=== PATIENT | female | born 1970 | race Caucasian/White ===

== ENCOUNTER 2020-10-01 21:04 | Emergency (ER) | payer BC ==
[~2020-10-01] VITALS: Ht 160 cm; Wt 129.1 kg
[2020-10-01 21:18] LABS: COLLECTION METHOD CLEAN CATCH
[2020-10-01 21:33] LABS: MUCOUS Present /lpf; PH 6 (5-8); URINE APPEARANCE Cloudy; URINE BACTERIA Rare /hpf; URINE BILIRUBIN Negative (NEGATIVE); URINE BLOOD Negative (NEGATIVE); URINE COLOR Yellow; URINE GLUCOSE Negative (NEGATIVE); URINE KETONE Negative (NEGATIVE); URINE LEUKOCYTE ESTERASE 2+ (NEGATIVE); URINE NITRATE Negative (NEGATIVE); URINE PROTEIN(semi-quant) Negative (NEGATIVE); URINE UROBILINOGEN >=4.0 mg/dL (NEGATIVE); URINE WBC >50 /hpf
[2020-10-01] MEDS ORDERED: CEFTIN 250250 MG/TAB PO (22:05)
[2020-10-01 22:26] VITALS: BP 132/76; PULSE 78; TEMP 98
== END 2020-10-01 22:29 | disposition home or self-care (01) ==
LOC: COL.ER
PROVIDERS: Emergency Medicine
DX: N39.0 Urinary tract infection, site not specified (principal)

== ENCOUNTER 2020-11-12 11:01 | Emergency (ER) | payer BC ==
[~2020-11-12 11:01] MED LIST: CEFTIN 250250 MG/TAB PO
== END 2020-11-12 12:11 | disposition left against medical advice (07) ==
LOC: COL.ER 11:01
DX: R69 Illness, unspecified (principal)

== ENCOUNTER 2020-12-19 21:40 | Emergency (ER) | payer BC ==
[~2020-12-19] VITALS: Ht 160 cm; Wt 127.3 kg
[2020-12-19 21:46] VITALS: TEMP 98
[2020-12-19] MEDS ORDERED: GLUCOPHAGE500 MG/TAB PO (22:08)
[2020-12-19] MEDS ORDERED: RISPERDAL M-TAB2 MG PO (22:08)
[2020-12-19] MEDS ORDERED: HYZAAR 50-12.1 UDTAB PO (22:09)
[2020-12-19] MEDS ORDERED: METHOTREXA2.5 MG/TAB PO (22:09)
[2020-12-19] MEDS ORDERED: BUSPIRONE HCL7.5 MG PO (22:10)
[2020-12-19] MEDS ORDERED: LEXAPRO20 MG PO (22:10)
[2020-12-19 22:14] VITALS: BP 136/82; PULSE 90
== END 2020-12-19 22:16 | disposition home or self-care (01) ==
LOC: COL.ER 21:40
DX: E11.9 Type 2 diabetes mellitus without complications (principal); E66.01 Morbid (severe) obesity due to excess calories; F17.210 Nicotine dependence, cigarettes, uncomplicated; Z79.84 Long term (current) use of oral hypoglycemic drugs

== ENCOUNTER → 2021-01-18 | Outpatient (CLI) | payer BC ==
[~2021-01-18] MED LIST changes: +ALDACTONE50 MG PO; +BUSPIRONE HCL7.5 MG PO; +COLACE 100100 MG/CAP PO; +ELIQUIS 5MG PO; +FLAGYL500 MG PO; +FOLIC ACID 11 MG/TA1 PO; +GLUCOPHAGE500 MG/TAB PO; +HYZAAR 50-12.1 UDTAB PO; +IRON TABLETS325 MG PO; +LASIX 20MG TABL20 MG PO; +LEXAPRO20 MG PO; +METHOTREXA2.5 MG/TAB PO; +MIRALAX PA17 GM/Dose PO; +NICODERM C14 MG/PATC TD; +OMNICEF 300MG300 MG PO; +OZEMPIC0.25 MG/0. SQ; +PAMELOR 25MG25 MG PO; +PHENERGAN 25 TA25 MG PO; +PROTONIX 40MG T40 MG PO; +RISPERDAL 0.5M0.5 MG PO; +RISPERDAL M-TAB2 MG PO; +VESICARE10 MG PO; +ZOFRAN ODT8 MG PO
== END ==
LOC: COL.RAD 09:48
DX: R10.13 Epigastric pain (principal); R14.2 Eructation; R11.2 Nausea with vomiting, unspecified; R13.10 Dysphagia, unspecified

== ENCOUNTER → 2021-02-04 | Outpatient (CLI) | payer BC | LOC: COL.RAD 09:41 | DX: K92.0 Hematemesis (principal); R14.2 Eructation; R10.13 Epigastric pain; R13.10 Dysphagia, unspecified | CPT/HCPCS: A9537; J2805 ==

== ENCOUNTER → 2021-02-23 | Outpatient (CLI) | payer BC | LOC: COL.RAD 02-22 07:00 | DX: R11.2 Nausea with vomiting, unspecified (principal) | CPT/HCPCS: A9541 ==

== ENCOUNTER 2021-02-27 10:32 | Emergency (ER) | payer BC ==
[~2021-02-27] VITALS: Ht 160 cm; Wt 122.7 kg
[~2021-02-27 10:32] MED LIST changes: -ALDACTONE50 MG PO; -COLACE 100100 MG/CAP PO; -ELIQUIS 5MG PO; -FLAGYL500 MG PO; -FOLIC ACID 11 MG/TA1 PO; -IRON TABLETS325 MG PO; -LASIX 20MG TABL20 MG PO; -MIRALAX PA17 GM/Dose PO; -NICODERM C14 MG/PATC TD; -OMNICEF 300MG300 MG PO; -OZEMPIC0.25 MG/0. SQ; -PAMELOR 25MG25 MG PO; -PHENERGAN 25 TA25 MG PO; -PROTONIX 40MG T40 MG PO; -RISPERDAL 0.5M0.5 MG PO; -VESICARE10 MG PO; -ZOFRAN ODT8 MG PO
[2021-02-27 10:38] VITALS: TEMP 98.3
[2021-02-27 10:48] LABS: COLLECTION METHOD CLEAN CATCH
[2021-02-27 11:01] LABS: URINE APPEARANCE Hazy; URINE COLOR Yellow
[2021-02-27] MEDS ORDERED: OMNICEF 300MG300 MG PO (11:01)
[2021-02-27 11:02] LABS: PH 5 (5-8); URINE BILIRUBIN Positive (NEGATIVE); URINE GLUCOSE Negative (NEGATIVE); URINE KETONE Negative (NEGATIVE); URINE LEUKOCYTE ESTERASE 1+ (NEGATIVE); URINE NITRATE Negative (NEGATIVE); URINE PROTEIN(semi-quant) 2+ (NEGATIVE)
[2021-02-27 11:04] LABS: URINE BLOOD Negative (NEGATIVE)
[2021-02-27 11:11] VITALS: BP 104/63; PULSE 104
[2021-02-27 11:19] LABS: URINE BACTERIA Moderate /hpf
== END 2021-02-27 11:12 | disposition home or self-care (01) ==
LOC: COL.ER 10:32
PROVIDERS: Family Medicine
DX: E11.9 Type 2 diabetes mellitus without complications (principal); N39.0 Urinary tract infection, site not specified; I10 Essential (primary) hypertension; F32.A Depression, unspecified; F41.9 Anxiety disorder, unspecified; Z79.84 Long term (current) use of oral hypoglycemic drugs; Z79.899 Other long term (current) drug therapy
CPT/HCPCS: J0696

== ENCOUNTER → 2021-03-15 | Outpatient (CLI) | payer BC ==
[~2021-03-15] MED LIST changes: +ALDACTONE50 MG PO; +COLACE 100100 MG/CAP PO; +ELIQUIS 5MG PO; +FLAGYL500 MG PO; +FOLIC ACID 11 MG/TA1 PO; +IRON TABLETS325 MG PO; +LASIX 20MG TABL20 MG PO; +MIRALAX PA17 GM/Dose PO; +NICODERM C14 MG/PATC TD; +OMNICEF 300MG300 MG PO; +OZEMPIC0.25 MG/0. SQ; +PAMELOR 25MG25 MG PO; +PHENERGAN 25 TA25 MG PO; +PROTONIX 40MG T40 MG PO; +RISPERDAL 0.5M0.5 MG PO; +VESICARE10 MG PO; +ZOFRAN ODT8 MG PO
== END ==
LOC: COL.RAD 10:02
DX: R30.0 Dysuria (principal); R11.2 Nausea with vomiting, unspecified; R10.9 Unspecified abdominal pain

== ENCOUNTER 2021-03-30 11:26 | Inpatient (IN) | payer BC ==
[~2021-03-30] VITALS: Ht 160 cm; Wt 136.5 kg
[~2021-03-30 11:26] MED LIST changes: -ALDACTONE50 MG PO; -COLACE 100100 MG/CAP PO; -ELIQUIS 5MG PO; -FLAGYL500 MG PO; -FOLIC ACID 11 MG/TA1 PO; -IRON TABLETS325 MG PO; -LASIX 20MG TABL20 MG PO; -MIRALAX PA17 GM/Dose PO; -NICODERM C14 MG/PATC TD; -OZEMPIC0.25 MG/0. SQ; -PAMELOR 25MG25 MG PO; -PHENERGAN 25 TA25 MG PO; -PROTONIX 40MG T40 MG PO; -RISPERDAL 0.5M0.5 MG PO; -VESICARE10 MG PO; -ZOFRAN ODT8 MG PO
[2021-03-30 12:29] LABS: HEMOGLOBIN 10.9 g/dl (12.5-16.0); MEAN CELL VOLUME 111 fl (80.0-100.0); MEAN CORPUSCULAR HEMOGLOBIN 39 pg (27.0-31.0); MEAN CORPUSCULAR HGB CONC 35 g/dl (33.0-37.0); MEAN PLATELET VOLUME 11.4 fl (7.4-10.4); PLATELET COUNT 151 K/mm3 (130-400); RED BLOOD COUNT 2.83 M/mm3 (4.10-5.30); REDCELL DISTRIBUTION WIDTH-CV 23.9 % (11.5-14.5)
[2021-03-30 12:31] LABS: HEMATOCRIT 31.5 % (37.0-47.0)
[2021-03-30 12:40] LABS: COLLECTION METHOD CLEAN CATCH
[2021-03-30 12:47] LABS: MUCOUS Present /lpf; PH 5 (5-8); SQUAMOUS EPITHELIAL 20-50 /hpf; URINE APPEARANCE Cloudy; URINE BACTERIA Occasional /hpf; URINE BILIRUBIN Negative (NEGATIVE); URINE BLOOD Negative (NEGATIVE); URINE COLOR Amber; URINE GLUCOSE Negative (NEGATIVE); URINE KETONE Trace (NEGATIVE); URINE LEUKOCYTE ESTERASE Trace (NEGATIVE); URINE NITRATE Negative (NEGATIVE); URINE PROTEIN(semi-quant) 2+ (NEGATIVE); URINE UROBILINOGEN >=4.0 mg/dL (NEGATIVE)
[2021-03-30 12:51] LABS: ANISOCYTOSIS 2+; BAND 6 % (0-10); EOSINOPHIL 1 % (0-4); LYMPHOCYTE 20 % (20.0-51.0); METAMYELOCYTE 5 % (0-0); NEUTROPHILS 64 % (42.0-75.2); PLATELET ESTIMATE NORMAL (NORMAL); TARGET CELLS 1+
[2021-03-30 12:53] LABS: ALANINE AMINOTRANSFERASE 18 U/L (0-55); ALBUMIN 2.4 gm/dL (3.5-5.0); ALKALINE PHOSPHATASE 127 U/L (40-150); ANION GAP 10 mmol/L (7-16); AST,SGOT 39 U/L (5-34); BLOOD UREA NITROGEN 6 mg/dL (7-19); C-REACTIVE PROTEIN 2.52 mg/dL (0.00-0.50); CALCIUM 8.3 mg/dL (8.4-10.2); CARBON DIOXIDE 20 mmol/L (22-29); CHLORIDE 107 mmol/L (98-107); CREATININE, serum 0.78 mg/dL (0.57-1.11); GLUCOSE 135 mg/dL (70-99); LIPASE 18 U/L (8-78); POTASSIUM 3.9 mmol/L (3.5-4.5); SODIUM 137 mmol/L (136-145); TOTAL PROTEIN 6.7 gm/dL (6.2-8.1)
[2021-03-30 12:59] LABS: TROPONIN-I < 0.010 ng/mL (0.00-0.033)
[2021-03-30 13:35] LABS: COLLECTION METHOD CATHETER
[2021-03-30 13:44] LABS: MUCOUS Present /lpf; PH 5 (5-8); SQUAMOUS EPITHELIAL 0-2 /hpf; URINE APPEARANCE Hazy; URINE BACTERIA Rare /hpf; URINE BILIRUBIN Negative (NEGATIVE); URINE BLOOD Negative (NEGATIVE); URINE COLOR Amber; URINE GLUCOSE Negative (NEGATIVE); URINE KETONE Trace (NEGATIVE); URINE LEUKOCYTE ESTERASE Trace (NEGATIVE); URINE NITRATE Negative (NEGATIVE); URINE PROTEIN(semi-quant) 2+ (NEGATIVE); URINE UROBILINOGEN >=4.0 mg/dL (NEGATIVE)
[2021-03-30 15:35] LABS: INR 1.4 (0.8-3.0); PROTHROMBIN TIME 15.6 SECONDS (9.7-12.8)
--- NOTE | 2021-03-30 16:00 | NUR ---
REPORT RECIEVED FROM DON DAMIAN IN ED. PT SHOULD BE BROUGHT TO THE MEDICAL FLOOR SHORTLY.
[2021-03-30 16:09] VITALS: BP 125/108; PULSE 122; TEMP 98.1
[2021-03-30] MEDS ORDERED: OZEMPIC0.25 MG/0. SQ (17:47)
[2021-03-30] MEDS ORDERED: FOLIC ACID 11 MG/TA1 PO (17:51)
[2021-03-30] MEDS ORDERED: VESICARE10 MG PO (17:52)
[2021-03-30] MEDS ORDERED: PROTONIX 40MG T40 MG PO (17:54)
[2021-03-30] MEDS ORDERED: PHENERGAN 25 TA25 MG PO (17:55)
[2021-03-30] MEDS ORDERED: ZOFRAN ODT8 MG PO (17:56)
[2021-03-30] MEDS ORDERED: IRON TABLETS325 MG PO (17:57)
[2021-03-30] MEDS ORDERED: RISPERDAL 0.5M0.5 MG PO (17:59)
--- NOTE | 2021-03-30 18:18 | NUR ---
HEPXA RESULT >1. STOPPING FOR 2 HOURS, REDRAW AT 2015.
[2021-03-30 18:26] VITALS: BP 125/108; PULSE 122; TEMP 98.1
[2021-03-30 21:03] VITALS: BP 107/65; PULSE 112; TEMP 98
[2021-03-30 22:48] VITALS: BP 111/68; PULSE 109; TEMP 97.8
[2021-03-30 23:40] VITALS: BP 82/57; PULSE 61; TEMP 98.1
[2021-03-31 04:12] VITALS: BP 117/67; PULSE 101; TEMP 97.4
--- NOTE | 2021-03-31 04:35 | NUR ---
AT 213 HEPXA RESULTS WERE 0.45, HEP GTT REDUCED BY 300 AND NOW INFUSING AT 2000. NEXT HEPXA DUE AT 0500 WITH PT'S OTHER LABS. PT IS VERY RELUCTANT TO NEEDLES.
--- NOTE | 2021-03-31 06:19 | NUR ---
AT 0618 GI CONSULTED; DR BLOUNT VERBALIZES CONFIRMATION.
[2021-03-31 07:14] LABS: MEAN CELL VOLUME 111 fl (80.0-100.0); MEAN CORPUSCULAR HGB CONC 35 g/dl (33.0-37.0); MEAN PLATELET VOLUME 11.3 fl (7.4-10.4); PLATELET COUNT 186 K/mm3 (130-400); RED BLOOD COUNT 2.56 M/mm3 (4.10-5.30); REDCELL DISTRIBUTION WIDTH-CV 23.6 % (11.5-14.5)
[2021-03-31 07:16] LABS: HEMATOCRIT 28.3 % (37.0-47.0); HEMOGLOBIN 9.9 g/dl (12.5-16.0); MEAN CORPUSCULAR HEMOGLOBIN 39 pg (27.0-31.0)
[2021-03-31 07:23] VITALS: BP 140/80; PULSE 99; TEMP 97.9
[2021-03-31 07:23] LABS: CALCIUM 8.2 mg/dL (8.4-10.2); CREATININE, serum 0.74 mg/dL (0.57-1.11); POTASSIUM 4.5 mmol/L (3.5-4.5)
[2021-03-31 07:27] LABS: BAND 1 % (0-10); EOSINOPHIL 2 % (0-4); LYMPHOCYTE 13 % (20.0-51.0); METAMYELOCYTE 3 % (0-0); MYELOCYTE 1 % (0-0); NEUTROPHILS 75 % (42.0-75.2); PLATELET ESTIMATE NORMAL (NORMAL)
--- NOTE | 2021-03-31 07:30 | NUR ---
Patient awake in bed. Assessment as chart. Telemetry on. HR 101bmp. Denies shortness of breath. Breath sounds diminished to bilateral lower lobes. IV heparin infusing to rt. a.c., no redness/no swelling noted. Patient has +1 edema to bilateral lower extremeties. Phillip hose on bilateral lower extremities. No redness/no warmth to bilateral lower extremities. Denien complaints of pain.
[2021-03-31 10:27] VITALS: BP 127/71; PULSE 98; TEMP 98.2
[2021-03-31 11:55] VITALS: BP 120/76; PULSE 101; TEMP 98.2
[2021-03-31] MEDS ORDERED: OMNICEF 300MG300 MG PO (15:35)
[2021-03-31] MEDS ORDERED: NICODERM C14 MG/PATC TD (15:36)
[2021-03-31] MEDS ORDERED: ELIQUIS 5MG PO (15:38)
[2021-04-05 07:40] LABS: LUPUS ANTICOAG DRVVT CONFIRM 1.46 ratio (()); LUPUS DRVVT RATIO 1.12 ratio (())
[2021-04-05 07:41] LABS: LUPUS ANTICOAGULANT INR 1.6 (0.7-1.3); LUPUS ANTICOAGULANT PT 18.7 Seconds (())
[2021-04-06 16:00] LABS: FACTOR V 49 % (70-120)
== END 2021-03-31 19:00 | disposition home or self-care (01) | DRG 176 ==
LOC: COL.ER 11:26 → MEDICAL 15:20
PROVIDERS: Nurse Practitioner; Physician Assistant; ADMIT Internal Medicine
DX: I26.99 Other pulmonary embolism without acute cor pulmonale (principal); R65.10 Systemic inflammatory response syndrome (SIRS) of non-infectious origin without acute organ dysfunction; N39.0 Urinary tract infection, site not specified; R18.8 Other ascites; I82.412 Acute embolism and thrombosis of left femoral vein; L03.90 Cellulitis, unspecified; I10 Essential (primary) hypertension; E11.9 Type 2 diabetes mellitus without complications; L40.9 Psoriasis, unspecified; F43.10 Post-traumatic stress disorder, unspecified; F32.A Depression, unspecified; F41.9 Anxiety disorder, unspecified; F17.210 Nicotine dependence, cigarettes, uncomplicated; G89.29 Other chronic pain; D53.9 Nutritional anemia, unspecified; E27.8 Other specified disorders of adrenal gland; E66.01 Morbid (severe) obesity due to excess calories; G47.33 Obstructive sleep apnea (adult) (pediatric); Z96.653 Presence of artificial knee joint, bilateral
CPT/HCPCS: 99239; G0378; J0696; J1644; J7030; Q9967

== ENCOUNTER 2021-04-11 12:36 | Observation (INO) | payer BC ==
[~2021-04-11] VITALS: Ht 160 cm; Wt 142.5 kg
[~2021-04-11 12:36] MED LIST changes: +ELIQUIS 5MG PO; +FOLIC ACID 11 MG/TA1 PO; +IRON TABLETS325 MG PO; +NICODERM C14 MG/PATC TD; +OZEMPIC0.25 MG/0. SQ; +PHENERGAN 25 TA25 MG PO; +PROTONIX 40MG T40 MG PO; +RISPERDAL 0.5M0.5 MG PO; +VESICARE10 MG PO; +ZOFRAN ODT8 MG PO
[2021-04-11 14:33] LABS: ALBUMIN 2.4 gm/dL (3.5-5.0); BILIRUBIN,TOTAL 1.4 mg/dL (0.2-1.2); CALCIUM 8.6 mg/dL (8.4-10.2); CREATININE, serum 0.84 mg/dL (0.57-1.11); POTASSIUM 4.4 mmol/L (3.5-4.5); TOTAL PROTEIN 6.7 gm/dL (6.2-8.1)
[2021-04-11 14:36] LABS: HEMOGLOBIN 11.3 g/dl (12.5-16.0); MEAN CELL VOLUME 117 fl (80.0-100.0); MEAN CORPUSCULAR HEMOGLOBIN 38 pg (27.0-31.0); MEAN CORPUSCULAR HGB CONC 33 g/dl (33.0-37.0); MEAN PLATELET VOLUME 10.1 fl (7.4-10.4); PLATELET COUNT 251 K/mm3 (130-400); RED BLOOD COUNT 2.97 M/mm3 (4.10-5.30); REDCELL DISTRIBUTION WIDTH-CV 20.4 % (11.5-14.5)
[2021-04-11 14:37] LABS: HEMATOCRIT 34.7 % (37.0-47.0)
[2021-04-11 15:12] LABS: ANISOCYTOSIS 2+; EOSINOPHIL 4 % (0-4); HYPOCHROMIA 1+; LYMPHOCYTE 14 % (20.0-51.0); NEUTROPHILS 70 % (42.0-75.2)
[2021-04-11 15:13] LABS: PLATELET ESTIMATE NORMAL (NORMAL)
[2021-04-11 15:31] LABS: COLLECTION METHOD CLEAN CATCH
[2021-04-11 15:40] LABS: MUCOUS Present (NOT PRESENT); PH 6 (5-8); SQUAMOUS EPITHELIAL 20-50 /hpf (0-10); URINE APPEARANCE Cloudy (CLEAR/HAZY); URINE BACTERIA Rare (NONE SEEN); URINE BILIRUBIN Negative (NEGATIVE); URINE BLOOD Negative (NEGATIVE); URINE COLOR Yellow (YELLOW); URINE GLUCOSE Negative (NEGATIVE); URINE KETONE Negative (NEGATIVE); URINE LEUKOCYTE ESTERASE Negative (NEGATIVE); URINE NITRATE Negative (NEGATIVE); URINE PROTEIN(semi-quant) Negative (NEGATIVE); URINE UROBILINOGEN Negative (NEGATIVE)
[2021-04-11] MEDS ORDERED: PAMELOR 25MG25 MG PO (17:12)
[2021-04-11 17:45] VITALS: BP 128/83; PULSE 110; TEMP 97.7
--- NOTE | 2021-04-11 17:45 | NUR ---
Patient to room 318 from the ED. A&Ox4. VSS. IV CDI. Denies pain, reports discomfort in abdomen. Independent in the room. Nurse oriented the patient to location, bed and call light. No further needs expressed. Call light within reach
[2021-04-11 17:53] LABS: INR 1.5 (0.8-3.0); PROTHROMBIN TIME 16.1 SECONDS (9.7-12.8)
[2021-04-11 20:00] VITALS: BP 117/79; PULSE 115; TEMP 97.9
[2021-04-12 00:07] VITALS: BP 92/56; PULSE 102; TEMP 97.3
[2021-04-12 04:09] VITALS: BP 112/67; PULSE 103; TEMP 98.1
--- NOTE | 2021-04-12 05:42 | NUR ---
PT HAD UNEVENTFUL NIGHT THIS SHIFT. SHE REPORTS FEELING A LITTLE BETTER. DENIES ABDOMINAL PAIN. PT REPORTS SOA AND GENERAL DISCOMFORT. PT VSS OTHER THAN HEART RATE, PT REMAINS TACHYCARDIC. I&O NOTED AND RECORDED. NPO STATUS REMAINS. SIGNED CONSENT FOR PARACENTESIS IN PTS CHART. ALL NEEDS MET THIS NIGHT. CALL LIGHT WITHIN REACH.
[2021-04-12 06:43] LABS: HEMOGLOBIN 10.3 g/dl (12.5-16.0); INR 1.4 (0.8-3.0); MEAN CORPUSCULAR HEMOGLOBIN 38 pg (27.0-31.0); MEAN CORPUSCULAR HGB CONC 34 g/dl (33.0-37.0); MEAN PLATELET VOLUME 10.6 fl (7.4-10.4); PLATELET COUNT 225 K/mm3 (130-400); PROTHROMBIN TIME 15.4 SECONDS (9.7-12.8); RED BLOOD COUNT 2.69 M/mm3 (4.10-5.30); REDCELL DISTRIBUTION WIDTH-CV 19.6 % (11.5-14.5)
--- NOTE | 2021-04-12 06:48 | NUR ---
Report received from DON Rosales. This RN introduced self to patient. Pt. sitting up in bed, denies needs at this time. Call light and belongings in reach.
[2021-04-12 06:51] LABS: CALCIUM 8.7 mg/dL (8.4-10.2); CREATININE, serum 0.8 mg/dL (0.57-1.11); HEMATOCRIT 30.2 % (37.0-47.0); MEAN CELL VOLUME 112 fl (80.0-100.0); POTASSIUM 4.6 mmol/L (3.5-4.5)
[2021-04-12 07:46] LABS: BAND 1 % (0-10); BASOPHIL 2 % (0-2); EOSINOPHIL 7 % (0-4); LYMPHOCYTE 21 % (20.0-51.0); METAMYELOCYTE 1 % (0-0); NEUTROPHILS 63 % (42.0-75.2); TARGET CELLS 2+
[2021-04-12 07:47] LABS: MICROCYTOSIS 1+
[2021-04-12 08:30] VITALS: BP 113/64; PULSE 104; TEMP 97.7
[2021-04-12 09:16] LABS: PERITONEAL -POLYMORPHONUCLEAR 16.4 % (0-25)
[2021-04-12 12:30] VITALS: BP 130/79; PULSE 112; TEMP 97.6
--- NOTE | 2021-04-12 13:00 | NUR ---
Pt. progressing w/ plan of care. Pt. received IV rocephin per EMAR today. Pt. educated on antibiotics as well as plan of care. Pt. is now on a 1500ml fluid restriction. Pt. educated on fluid restriction and pt. agreeable to keep track of and limit her PO fluids throughout the day. Needs addressed. Call light and belongings in reach.
--- NOTE | 2021-04-12 14:02 | NUR ---
textile worker met with patient to discuss discharge plan. Patient states that she lives at home with her Jerome [phone] here in [place]. Patient reports that she in independent with her activities of daily living and she does not utilize any DME to assist with ambulation and has no oxygen needs. PCP is Dr. Starks and she utilizes [email or web address] for perscriptions with no cost difficulty. Patient reports that she does not have a DPOA-HC established. Education and form offered to the patient who proceeds with not wanting to establish one at this time. Discharge plan: Home
--- NOTE | 2021-04-12 14:22 | NUR ---
First visit from the public service representative. No needs right now.
[2021-04-12 16:10] VITALS: BP 93/63; PULSE 106; TEMP 97.8
--- NOTE | 2021-04-12 19:26 | NUR ---
RECEIVED CHANGE OF SHIFT REPORT FROM DAY SHIFT NURSE.
[2021-04-12 20:18] VITALS: BP 117/67; PULSE 108; TEMP 97.9
[2021-04-13] VITALS (7 sets, daily range): BP systolic 100–137; BP diastolic 64–87; PULSE 102–107; TEMP 97.8–98.7
[2021-04-13 06:55] LABS: BASO # 0.2 K/mm3 (0.0-0.2); BASO % 1.4 % (0.0-2.0); EOS # 0.8 K/mm3 (0.0-0.7); EOS % 6.2 % (0-4.0); GRAN # 7.1 K/mm3 (1.4-6.5); GRAN % 57.1 % (42.2-75.2); LYMPH # 2.9 K/mm3 (1.2-3.4); LYMPH % 23.1 % (20.0-51.0); MEAN CELL VOLUME 115 fl (80.0-100.0); MEAN CORPUSCULAR HGB CONC 33 g/dl (33.0-37.0); MEAN PLATELET VOLUME 10.8 fl (7.4-10.4); MONO # 1.4 K/mm3 (0.1-0.6); MONO % 11.6 % (1.7-9.3); PLATELET COUNT 205 K/mm3 (130-400); RED BLOOD COUNT 2.56 M/mm3 (4.10-5.30); REDCELL DISTRIBUTION WIDTH-CV 19.2 % (11.5-14.5)
[2021-04-13 07:02] LABS: HEMATOCRIT 29.3 % (37.0-47.0); HEMOGLOBIN 9.8 g/dl (12.5-16.0); MEAN CORPUSCULAR HEMOGLOBIN 38 pg (27.0-31.0)
--- NOTE | 2021-04-13 07:02 | NUR ---
CHANGE OF SHIFT REPORT GIVEN TO DAY SHIFT JAMIE OCHOA.
[2021-04-13 07:04] LABS: ALBUMIN 2.2 gm/dL (3.5-5.0); BILIRUBIN,TOTAL 1.1 mg/dL (0.2-1.2); CALCIUM 8.3 mg/dL (8.4-10.2); CREATININE, serum 0.81 mg/dL (0.57-1.11); POTASSIUM 4.2 mmol/L (3.5-4.5)
--- NOTE | 2021-04-13 08:40 | NUR ---
Patient sitting at edge of bed, eating her breakfast. Denies pain when asked. Denies complaints. Will monitor closely.
--- NOTE | 2021-04-13 13:26 | NUR ---
Patient resting in bed. minimal needs. jin john.
--- NOTE | 2021-04-13 16:46 | NUR ---
Patient resting in bed. Denies needs at this time.
--- NOTE | 2021-04-13 17:03 | NUR ---
Patient sitting up on bench. Visitior at bedside. Denies needs. She is keeping accurate fluid restrictions.
--- NOTE | 2021-04-13 18:32 | NUR ---
Yoly denies needs, will report off to nightnurse
[2021-04-14 03:53] VITALS: BP 108/81; PULSE 105; TEMP 97.8
[2021-04-14 06:52] LABS: BASO # 0.1 K/mm3 (0.0-0.2); BASO % 1.2 % (0.0-2.0); EOS # 0.7 K/mm3 (0.0-0.7); EOS % 7.4 % (0-4.0); GRAN # 5.2 K/mm3 (1.4-6.5); LYMPH # 2.5 K/mm3 (1.2-3.4); LYMPH % 25.2 % (20.0-51.0); MEAN CELL VOLUME 116 fl (80.0-100.0); MEAN CORPUSCULAR HGB CONC 33 g/dl (33.0-37.0); MEAN PLATELET VOLUME 10.7 fl (7.4-10.4); MONO # 1.3 K/mm3 (0.1-0.6); MONO % 12.9 % (1.7-9.3); PLATELET COUNT 198 K/mm3 (130-400); RED BLOOD COUNT 2.62 M/mm3 (4.10-5.30); REDCELL DISTRIBUTION WIDTH-CV 18.7 % (11.5-14.5)
[2021-04-14 07:03] LABS: HEMATOCRIT 30.3 % (37.0-47.0); HEMOGLOBIN 9.9 g/dl (12.5-16.0); MEAN CORPUSCULAR HEMOGLOBIN 38 pg (27.0-31.0)
[2021-04-14 07:12] LABS: ALBUMIN 2.1 gm/dL (3.5-5.0); BILIRUBIN,TOTAL 0.8 mg/dL (0.2-1.2); CALCIUM 8.1 mg/dL (8.4-10.2); CREATININE, serum 0.79 mg/dL (0.57-1.11); POTASSIUM 4.1 mmol/L (3.5-4.5); TOTAL PROTEIN 5.8 gm/dL (6.2-8.1)
[2021-04-14 07:38] VITALS: BP 121/77; PULSE 100; TEMP 97.9
--- NOTE | 2021-04-14 08:28 | NUR ---
Patient doing well this morning and is independent. Patient denies any pain. Patient did notify this RN of a bruise above her IV. Bruise is present, area is soft and painless. Patient stated she did experience a little bit of burning while the rocephin was being pushed yesterday, but that it was not unbearable. Also stated this is normal for her with this location.
[2021-04-14] MEDS ORDERED: ALDACTONE50 MG PO (09:41)
[2021-04-14] MEDS ORDERED: LASIX 20MG TABL20 MG PO (09:41)
[2021-04-14] MEDS ORDERED: ELIQUIS 5MG PO (09:41)
[2021-04-14] MEDS ORDERED: MIRALAX PA17 GM/Dose PO (09:42)
[2021-04-14] MEDS ORDERED: COLACE 100100 MG/CAP PO (09:42)
[2021-04-14] MEDS ORDERED: FLAGYL500 MG PO ×3 (10:14→12:48)
[2021-04-14] MEDS ORDERED: OMNICEF 300MG300 MG PO ×3 (10:14→12:48)
--- NOTE | 2021-04-14 11:14 | NUR ---
Patient discharged by this RN. All instructions and education were gone over. Patient's IV in the left forearm was discontued, as was telemetry. Patient escorted out. Patient did not have any complaints/concerns at the time of discharge.
== END 2021-04-14 11:10 | disposition home or self-care (01) ==
LOC: COL.ER 12:36 → MEDICAL 16:57
PROVIDERS: Emergency Medicine; Physician Assistant; ADMIT Student in an Organized Health Care Education/Training Program
DX: R18.8 Other ascites (principal); I26.99 Other pulmonary embolism without acute cor pulmonale; R65.10 Systemic inflammatory response syndrome (SIRS) of non-infectious origin without acute organ dysfunction; D72.829 Elevated white blood cell count, unspecified; R10.9 Unspecified abdominal pain; R79.89 Other specified abnormal findings of blood chemistry; R74.02 Elevation of levels of lactic acid dehydrogenase [LDH]; E11.9 Type 2 diabetes mellitus without complications; I10 Essential (primary) hypertension; D53.9 Nutritional anemia, unspecified; E66.01 Morbid (severe) obesity due to excess calories; F41.9 Anxiety disorder, unspecified; F32.A Depression, unspecified; F43.10 Post-traumatic stress disorder, unspecified; F17.210 Nicotine dependence, cigarettes, uncomplicated; Z79.899 Other long term (current) drug therapy; Z79.84 Long term (current) use of oral hypoglycemic drugs; Z79.01 Long term (current) use of anticoagulants; Z83.3 Family history of diabetes mellitus
CPT/HCPCS: 99233-AI; G0378; J0696; J1940; Q9967

== ENCOUNTER → 2021-04-22 | Outpatient (CLI) | payer BC ==
[~2021-04-22] VITALS: Ht 160 cm; Wt 141.5 kg
[~2021-04-22] MED LIST changes: +ALDACTONE50 MG PO; +COLACE 100100 MG/CAP PO; +FLAGYL500 MG PO; +LASIX 20MG TABL20 MG PO; +MIRALAX PA17 GM/Dose PO; +PAMELOR 25MG25 MG PO
[2021-04-22 11:56] VITALS: BP 151/96; PULSE 131; TEMP 97.9
[2021-04-22 13:45] VITALS: BP 150/75; PULSE 107
[2021-04-27 10:15] LABS: PERITONEAL -POLYMORPHONUCLEAR 19.2 % (0-25)
== END ==
LOC: COL.RAD 11:28
PROVIDERS: Internal Medicine Gastroenterology
DX: I26.99 Other pulmonary embolism without acute cor pulmonale (principal); R10.84 Generalized abdominal pain; R60.0 Localized edema; R60.1 Generalized edema
CPT/HCPCS: 19804

== ENCOUNTER → 2021-05-07 | Outpatient (CLI) | payer BC ==
--- NOTE | 2021-05-07 13:55 | NUR ---
Pts procedure cancelled. Pt took marley this am. Called scheduling and rescheduled for Monday at 1315.
== END ==
LOC: COL.RAD 12:55
DX: I26.99 Other pulmonary embolism without acute cor pulmonale (principal); R18.8 Other ascites; R14.0 Abdominal distension (gaseous); R10.9 Unspecified abdominal pain; R11.2 Nausea with vomiting, unspecified

== ENCOUNTER → 2021-05-10 | Outpatient (CLI) | payer BC ==
[~2021-05-10] VITALS: Ht 160 cm; Wt 127.8 kg
[2021-05-10 13:28] VITALS: BP 124/87; PULSE 123; TEMP 98.1
--- NOTE | 2021-05-10 13:50 | NUR ---
pt returns procedure canceled. Pt has no fluid in abdomen. Pt has a large amount of stool.
== END ==
LOC: COL.RAD 12:47
DX: R18.8 Other ascites (principal); Z98.890 Other specified postprocedural states

== ENCOUNTER → 2021-06-15 | Outpatient (CLI) | payer BC ==
[2021-06-15 13:26] LABS: CALCIUM 9.4 mg/dL (8.4-10.2); CREATININE, serum 1.15 mg/dL (0.57-1.11); POTASSIUM 4.3 mmol/L (3.5-4.5)
== END ==
LOC: COL.LAB 12:51 → COL.RAD 13:30 → COL.LAB 13:30
PROVIDERS: Internal Medicine Pulmonary Disease
DX: M79.89 Other specified soft tissue disorders (principal); Z86.718 Personal history of other venous thrombosis and embolism
CPT/HCPCS: Q9967

== ENCOUNTER 2021-09-27 18:18 | Emergency (ER) | payer BC ==
[~2021-09-27] VITALS: Ht 160 cm; Wt 125.0 kg
[2021-09-27 18:30] VITALS: BP 139/90; TEMP 98.5
[2021-09-27 19:17] VITALS: PULSE 106
== END 2021-09-27 19:19 | disposition home or self-care (01) ==
LOC: COL.ER 18:18
DX: I10 Essential (primary) hypertension (principal); E11.9 Type 2 diabetes mellitus without complications; F17.200 Nicotine dependence, unspecified, uncomplicated; Z86.711 Personal history of pulmonary embolism; Z79.01 Long term (current) use of anticoagulants

== ENCOUNTER → 2021-12-01 | Outpatient (CLI) | payer BC | LOC: COL.VAS 09:51 | DX: I26.99 Other pulmonary embolism without acute cor pulmonale (principal) ==

== ENCOUNTER → 2021-12-02 | Outpatient (CLI) | payer BC | LOC: MC.RAD 16:12 | DX: Z12.31 Encounter for screening mammogram for malignant neoplasm of breast (principal) ==

== ENCOUNTER 2021-12-12 15:54 | Emergency (ER) | payer BC ==
[~2021-12-12] VITALS: Ht 160 cm; Wt 122.7 kg
[2021-12-12 16:13] VITALS: TEMP 97.9
[2021-12-12] MEDS ORDERED: FLEXERIL 1010 MG/TAB PO (16:48)
[2021-12-12] MEDS ORDERED: NORCO 325 MG-51 TAB PO (16:48)
[2021-12-12 17:27] VITALS: BP 137/90; PULSE 86
== END 2021-12-12 17:27 | disposition home or self-care (01) ==
LOC: COL.ER 15:54
DX: M54.41 Lumbago with sciatica, right side (principal); F17.210 Nicotine dependence, cigarettes, uncomplicated

== ENCOUNTER 2022-03-23 12:56 | Emergency (ER) | payer BC ==
[~2022-03-23] VITALS: Ht 160 cm; Wt 120.0 kg
[~2022-03-23 12:56] MED LIST changes: +FLEXERIL 1010 MG/TAB PO; +NORCO 325 MG-51 TAB PO
[2022-03-23 13:22] VITALS: TEMP 98.6
[2022-03-23 14:41] LABS: HEMATOCRIT 39.8 % (37.0-47.0); HEMOGLOBIN 13.6 g/dl (12.5-16.0); MEAN CELL VOLUME 86 fl (80.0-100.0); MEAN CORPUSCULAR HEMOGLOBIN 29 pg (27-31); MEAN CORPUSCULAR HGB CONC 34 g/dl (33.0-37.0); MEAN PLATELET VOLUME 10.1 fl (7.4-10.4); PLATELET COUNT 245 K/mm3 (130-400); RED BLOOD COUNT 4.64 M/mm3 (4.10-5.30); REDCELL DISTRIBUTION WIDTH-CV 16.2 % (11.5-14.5)
[2022-03-23 15:06] LABS: ALBUMIN 3.4 gm/dL (3.5-5.0); BILIRUBIN,TOTAL 0.8 mg/dL (0.2-1.2); CALCIUM 9.7 mg/dL (8.4-10.2); CREATININE, serum 1.55 mg/dL (0.57-1.11); TOTAL PROTEIN 8.9 gm/dL (6.2-8.1)
[2022-03-23 15:09] LABS: POTASSIUM 2.9 mmol/L (3.5-4.5)
[2022-03-23 15:24] LABS: ANISOCYTOSIS 1+; EOSINOPHIL 1 % (0-4); LYMPHOCYTE 37 % (20.0-51.0); NEUTROPHILS 54 % (42.0-75.2)
[2022-03-23 15:25] LABS: PLATELET ESTIMATE NORMAL (NORMAL)
[2022-03-23 15:52] VITALS: BP 124/80; PULSE 107
== END 2022-03-23 15:52 | disposition home or self-care (01) ==
LOC: COL.ER 12:56
PROVIDERS: Emergency Medicine
DX: K59.00 Constipation, unspecified (principal); E87.6 Hypokalemia; D72.829 Elevated white blood cell count, unspecified; F17.210 Nicotine dependence, cigarettes, uncomplicated